=== PATIENT | male | born 2005 | race Caucasian/White ===

== ENCOUNTER 2023-08-11 21:57 | Emergency (ER) | payer SELFPAY ==
[2023-08-11 22:03] VITALS: PULSE 121
[2023-08-13] MEDS ORDERED: IBUP-2029 MT (20:03)
== END 2023-08-12 03:00 | disposition left against medical advice (07) ==
LOC: ER 21:57
DX: R51.9 Headache, unspecified (principal); Z53.21 Procedure and treatment not carried out due to patient leaving prior to being seen by health care provider
CPT/HCPCS: 99281

== ENCOUNTER 2023-08-13 16:49 | Emergency (ER) | payer OTHER ==
[~2023-08-13] VITALS: Ht 175.3 cm; Wt 90.0 kg
[2023-08-13 17:05] VITALS: BP 131/76; PULSE 85; RESP 20; TEMP 98.3; O2SAT 97
[2023-08-13] MEDS ORDERED: IBUP-2029 MT (20:03)
== END 2023-08-13 20:38 | disposition home or self-care (01) ==
LOC: ER 16:49
DX: S09.90XA Unspecified injury of head, initial encounter (principal); W22.8XXA Striking against or struck by other objects, initial encounter; Y93.89 Activity, other specified; Y92.89 Other specified places as the place of occurrence of the external cause; Y99.8 Other external cause status
CPT/HCPCS: 99284